=== PATIENT | male | born 1950 | race Caucasian/White ===

== ENCOUNTER 2021-08-07 09:39 | Emergency (ER) | payer MEDICARE, BC ==
--- NOTE | 2021-08-07 10:08 | EDM.PDOC ---
ED HPI GENERAL MEDICAL PROBLEM - General Chief Complaint: Genitourinary Problem Stated Complaint: trouble urinating Time Seen by Provider: 08/07/21 10:00 Source of Information: Reports: Patient, Family (spouse) - History of Present Illness INITIAL COMMENTS - FREE TEXT/NARRATIVE: 70-year-old male presents to the ED in accompaniment of his . Patient presents with chief complaint of inability to void. Of note the patient developed shingles in the L1-L2 dermatome right lower back down into the right inguinal area 5 days ago. He was started on valacyclovir 3 days ago. He is also taking Phenergan with codeine cough syrup which was started 3 days ago due to severe development of paroxysmal cough when he lies down at night. He has never had any problems with prostatism or urinary retention. He does report poor renal function. He is however on lisinopril once daily for blood pressure control. He denies any fever chills or pelvic pain other than lower abdominal discomfort this morning. He states after he left the clinic this morning he did void a small quantity of urine did not appreciate any blood in this urine. No dysuria. Onset: Gradual Onset Date: 08/06/21 (Appreciated slower urinary flow yesterday and unable to void early this morning but did void slightly after getting home from the clinic this morning) Duration: Hour(s):, Getting Worse Location: Reports: Abdomen (Diffuse lower abdominal pain rating to his lower back.), Other (Urinary retention) Quality: Reports: Other (Unable to void satisfactorily. Passing only a small quantity of urine this morning) Severity: Moderate Improves with: Reports: None Worsens with: Reports: None Context: Reports: Other (Presents to the ED with inability to empty his urinary bladder). 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: Other (see below) (Patient is taking Phenergan with codeine cough syrup both of which would inhibit bladder function) Bladder Pain Score (Numeric/FACES): 5 - Related Data Allergies Allergy/AdvReac Type Severity Reaction Status Date / Time No Known Allergies Allergy Verified 08/07/21 09:50 Home Meds: Home Meds Promethazine HCl/Codeine [Promethazine-Codeine Syrup] 1 tsp PO Q4H PRN 08/07/21 [History] atorvaSTATin [Lipitor] 20 mg PO DAILY 08/07/21 [History] lisinopriL [Lisinopril] 40 mg PO DAILY 08/07/21 [History] valACYclovir [Valtrex] 1 gm PO TID 08/07/21 [History] Past Medical History HEENT History: Reports: Impaired Vision Other HEENT History: wears eyeglasses. Cardiovascular History: Reports: High Cholesterol, Hypertension Genitourinary History: Reports: Renal Disease (Apparently has some degree of renal insufficiency) Dermatologic History: Reports: Other (See Below) Other Dermatologic History: shingles. - Infectious Disease History Infectious Disease History: Reports: Chicken Pox, Measles, Mumps, Shingles Social & Family History - Tobacco Use Tobacco Use Status *Q: Never Tobacco User Second Hand Smoke Exposure: No - Caffeine Use Caffeine Use: Reports: None - Recreational Drug Use Recreational Drug Use: No - Living Situation & Occupation Living situation: Reports: Occupation: Employed ED ROS GENERAL - Review of Systems Review Of Systems: See Below Constitutional: Reports: Decreased Appetite (Only today.). Denies: Fever, Chills, Malaise, Weakness, Night Sweats, Weight Gain, Other HEENT: Reports: Glasses Respiratory: Reports: Other (Has a severe paroxysmal minimally productive cough when he lies down at night. During the daytime he is pretty good. This is been present for the last 3 to 5 days) Cardiovascular: Reports: Blood Pressure Problem Endocrine: Reports: No Symptoms GI/Abdominal: Reports: Abdominal Pain (Lower abdominal pain suprapubically with inability to void this morning), Decreased Appetite : Reports: Urinary Retention (See history of present illness) Musculoskeletal: Reports: Joint Pain Skin: Reports: Rash (Patient has shingles rash involving his lower back in the L1-L2 dermatome that radiates down into the right inguinal fold) Neurological: Reports: No Symptoms Psychiatric: Reports: No Symptoms Hematologic/Lymphatic: Reports: No Symptoms Immunologic: Reports: No Symptoms ED EXAM, RENAL/ - Physical Exam Exam: See Below Exam Limited By: No Limitations General Appearance: Alert, WD/WN, No Apparent Distress, Other (Temperature is 36.2 degrees heart rate 99 is sinus respiratory is 18 with O2 sats of 96% room air. BP 129/75) Eye Exam: Bilateral Eye: Normal Inspection (No scleral icterus or blepharal pallor.) Respiratory/Chest: No Respiratory Distress, Lungs Clear, Normal Breath Sounds, No Accessory Muscle Use Cardiovascular: Normal Peripheral Pulses, Regular Rate, Rhythm, No Edema, No Gallop, No JVD, No Rub GI/Abdominal: No Organomegaly, Distended (The abdomen is distended and dull to percussion to just below the umbilicus compatible with a full urinary bladder.), Abnormal Bowel Sounds (Bowel sounds are very sparse.), Other (No surgical scars identified). No: Normal Bowel Sounds, Guarding, Rigid, Rebound Extremities: Normal Inspection, Normal Range of Motion, Non-Tender, No Pedal Edema Neurological: Alert, Oriented, CN II-XII Intact, Normal Cognition Psychiatric: Normal Affect, Normal Mood Skin Exam: Warm, Dry, Intact, Zoster-Like Rash (Right lower back adjacent to the L4-L5 vertebra with rash extending into the right inguinal fold in the L1 nerve root distribution) Course - Vital Signs Last Recorded V/S: Last Vital Signs Temp 36.2 C 08/07/21 09:45 Pulse 99 08/07/21 09:45 Resp 18 08/07/21 09:45 BP 129/75 08/07/21 09:45 Pulse Ox 96 08/07/21 09:45 - Orders/Labs/Meds Orders: Active Orders 24 hr Category Date Time Status Bladder Scan [RC] ASDIRECTED Care 08/07/21 10:03 Active Rodriguez Catheter Insertion [Insert Urinary Catheter] [OM. Care 08/07/21 10:45 Ordered PC] Q24H Urinary Catheter Assessment [RC] ASDIRECTED Care 08/07/21 10:35 Active Labs: Laboratory Tests 08/07/21 08/07/21 08/07/21 Range/Units 10:12 10:12 10:45 WBC 7.98 (4.23-9.07) K/mm3 RBC 5.10 (4.63-6.08) M/mm3 Hgb 14.3 (13.7-17.5) gm/dl Hct 43.7 (40.1-51.0) % MCV 85.7 (79.0-92.2) fl MCH 28.0 (25.7-32.2) pg MCHC 32.7 (32.2-35.5) g/dl RDW Std Deviation 42.3 (35.1-43.9) fL Plt Count 296 (163-337) K/mm3 MPV 9.2 L (9.4-12.3) fl Neut % (Auto) 51.1 (34.0-67.9) % Lymph % (Auto) 32.0 (21.8-53.1) % [place] % (Auto) 9.1 (5.3-12.2) % Eos % (Auto) 4.9 (0.8-7.0) Baso % (Auto) 2.3 H (0.1-1.2) % Neut # (Auto) 4.08 (1.78-5.38) K/mm3 Lymph # (Auto) 2.55 (1.32-3.57) K/mm3 [place] # (Auto) 0.73 (0.30-0.82) K/mm3 Eos # (Auto) 0.39 (0.04-0.54) K/mm3 Baso # (Auto) 0.18 H (0.01-0.08) K/mm3 Sodium 138 (136-145) mEq/L Potassium 4.3 (3.5-5.1) mEq/L Chloride 102 (98-107) mEq/L Carbon Dioxide 26 (21-32) mEq/L Anion Gap 14.3 (5-15) BUN 29 H (7-18) mg/dL Creatinine 1.9 H (0.7-1.3) mg/dL Est Cr Clr Drug Dosing 37.35 mL/min Estimated GFR (MDRD) 35 (>60) mL/min BUN/Creatinine Ratio 15.3 (14-18) Glucose 141 H (70-99) mg/dL Calcium 8.5 (8.5-10.1) mg/dL Total Bilirubin 0.5 (0.2-1.0) mg/dL AST 15 (15-37) U/L ALT 30 (16-63) U/L Alkaline Phosphatase 73 (46-116) U/L Total Protein 7.9 (6.4-8.2) g/dl Albumin 3.4 (3.4-5.0) g/dl Globulin 4.5 gm/dL Albumin/Globulin Ratio 0.8 L (1-2) Urine Color Yellow (Yellow) Urine Appearance Clear (Clear) Urine pH 5.5 (5.0-8.0) Ur Specific [place] 1.020 (1.005-1.030) Urine Protein Negative (Negative) Urine Glucose (UA) Negative (Negative) Urine Ketones Negative (Negative) Urine Occult Blood Negative (Negative) Urine Nitrite Negative (Negative) Urine Bilirubin Negative (Negative) Urine Urobilinogen 0.2 (0.2-1.0) Ur Leukocyte Esterase Negative (Negative) Urine RBC 0-5 (0-5) /hpf Urine WBC 0-5 (0-5) /hpf Ur Squamous Epith Cells 0-5 (0-5) /hpf Urine Bacteria Few (FEW) /hpf Urine Mucus Not seen (FEW) /hpf Meds: Medications Discontinued Medications Generic Name Dose Route Start Last Admin Trade Name Freq PRN Reason Stop Dose Admin Lidocaine HCl 10 ml 08/07/21 10:34 08/07/21 10:36 Lidocaine 2% Jelly 10 Ml Urojet MUCMEM 08/07/21 10:35 10 ml ONETIME ONE Administration Lidocaine HCl Confirm 08/07/21 10:34 Lidocaine 2% Jelly 10 Ml Urojet Administered 08/07/21 10:35 Dose 10 ml .ROUTE .K-MED ONE - Radiology Interpretation Free Text/Narrative:: 70-year-old male presents to the ED reporting inability to empty his urinary bladder. He states he was able to pass a small quantity of urine after he got home from the clinic this morning. Still feels incomplete emptying. Appreciated mild hesitancy see of passage of urine yesterday. Of note he was started on Phenergan with codeine cough syrup 3 days ago due to severe paroxysmal cough at nighttime when he lies down. This most likely is the culprit in inhibiting bladder function. Clinically his urinary bladder is approximately 2 cm below the umbilicus. Plan postvoid residual bladder scan to be done. Tentatively a Rodriguez catheter will then be placed and urinalysis to be evaluated. Due to history of renal insufficiency a CBC and CMP will also be or dered. - Re-Assessments/Exams Free Text/Narrative Re-Assessment/Exam: 08/07/21 10:36 patient had no luck in producing any urine. Therefore Rodriguez catheter will be placed and left in place until we clarify if there is any urinary tract infection. Procedure will be facilitated by [employer]jet lidocaine 08/07/21 11:22 White count is normal at 7.98. The auto differential reveals 51.1% neutrophils. Hemoglobin is 14.3 with hematocrit of 43.7. MCV is normal at 85.7. Platelet count 296,000. Sodium was 138 with a potassium of 4.3. Chloride is 102 with a bicarb of 26. Anion gap is 14.3 BUN is slightly elevated at 29 with a creatinine of 1.9 and a GFR of 35 i.e. stage IIIb renal insufficiency. Glucose 141 with a calcium of 8.5 total bilirubin is 0.5 AST is 15 with an ALT of 30 and alkaline phosphatase of 73. Total protein 7.9 with an albumin fraction of 3.4 urinalysis is completely normal with no evidence of infection. And wishes to have the Rodriguez catheter removed to the discomfort that is causing. He did drain approximately 450 mils of clear urine. Move the Rodriguez catheter and if he can void neck 6 to 8 hours on his own after normal drinkingHe is to return to the ED for reinsertion of Rodriguez catheter. His last dose of cough syrup IV Phenergan with codeine was around 2 or 3 this morning and therefore is likely the culprit in causing the acute urinary retention. He will no longer use this medication Departure - Departure Time of Disposition: 11:30 Disposition: Home, Self-Care 01 Condition: Fair Clinical Impression: Acute urinary retention, Adverse effects of medication - Discharge Information *PRESCRIPTION DRUG MONITORING PROGRAM REVIEWED*: Not Applicable *COPY OF PRESCRIPTION DRUG MONITORING REPORT IN PATIENT EZIO: Not Applicable Instructions: Acute Urinary Retention, Male Referrals: Bernie Campbell PA-C [Primary Care Provider] - Forms: ED Department Discharge Additional Instructions: Evaluation in the emergency room today regards to inability to pass your water or void. Bladder scan suggested over 400 mils of urine in the urinary bladder. Rodriguez catheter placement drained approximately 450 mils of clear urine. The urine test revealed no signs of infection. Lab test revealed no signs of infection. Kidney function reveals mild renal insufficiency called 3B with a GFR of 35. I believe strongly that it was the cough syrup by Phenergan with codeine that helped precipitate poor bladder contractility which in turn created inability to pass your water or what we call urinary retention. The Rodriguez catheter was removed and you are to return if you are unable to void on your own in 6 to 8 hours time with normal eating and drinking patterns. Of course discontinue the cough syrup. May replace with Robitussin which is [id number] if needed. Sepsis Event Note (ED) - Evaluation Sepsis Screening Result: No Definite Risk - Focused Exam Vital Signs: Vital Signs Temp Pulse Resp BP Pulse Ox 08/07/21 09:45 36.2 C 99 18 129/75 96 - My Orders Last 24 Hours: My Active Orders 08/07/21 10:03 Bladder Scan [RC] ASDIRECTED 08/07/21 10:35 Urinary Catheter Assessment [RC] ASDIRECTED 08/07/21 10:45 Rodriguez Catheter Insertion [Insert Urinary Catheter] [OM.PC] Q24H - Assessment/Plan Last 24 Hours: My Active Orders 08/07/21 10:03 Bladder Scan [RC] ASDIRECTED 08/07/21 10:35 Urinary Catheter Assessment [RC] ASDIRECTED 08/07/21 10:45 Rodriguez Catheter Insertion [Insert Urinary Catheter] [OM.PC] Q24H
[2021-08-07] MEDS ORDERED: Lidocaine 2% Jelly 10 ML Urojet ONE (10:34)
[2021-08-07] MEDS ORDERED: Lidocaine 2% Jelly 10 ML Urojet MUCMEM ONE (10:34)
== END 2021-08-07 11:45 | disposition home or self-care (01) ==
LOC: JD.ED 09:39
DX: R33.0 Drug induced retention of urine (principal); T40.2X5A Adverse effect of other opioids, initial encounter; T42.6X5A Adverse effect of other antiepileptic and sedative-hypnotic drugs, initial encounter; E78.00 Pure hypercholesterolemia, unspecified; I10 Essential (primary) hypertension; Z79.899 Other long term (current) drug therapy
CPT/HCPCS: 36415; 51702; 80053; 81001; 85025; 99284-25

== ENCOUNTER 2024-05-15 08:32 | Emergency (ER) | payer MEDICARE, BC ==
[2024-05-15 09:15] LABS: BASOPHILS ABSOLUTE AUTO 0.1 K/mm3 (0.0-0.2); BASOPHILS PERCENT AUTO 0.6 % (0.0-1.0); EOSINOPHILS ABSOLUTE AUTO 0.3 K/mm3 (0.0-0.4); EOSINOPHILS PERCENT AUTO 2.2 % (0.0-6.0); HEMOGLOBIN 14.1 gm/dl (14.0-18.0); IMMATURE GRAN PERCENT AUTO 0.7 % (0.0-0.4); LYMPHOCYTES ABSOLUTE AUTO 1.9 K/mm3 (1.0-4.8); LYMPHOCYTES PERCENT AUTO 14.1 % (24.0-44.0); MEAN CORPUSCULAR VOLUME 87.5 fl (83.0-99.0); MONOCYTES ABSOLUTE AUTO 1.1 K/mm3 (0.0-0.8); MONOCYTES PERCENT AUTO 8.4 % (0.0-8.0); NEUTROPHILS ABSOLUTE AUTO 9.9 K/mm3 (1.8-7.7); PLATELET COUNT,PLT 432 K/mm3 (150-400); RED BLOOD CELL COUNT 5.03 M/mm3 (4.52-5.90); WHITE BLOOD CELL COUNT,WBC 13.38 K/mm3 (3.9-11.3)
[2024-05-15 09:39] LABS: A/G RATIO 0.8 (1-2); ALBUMIN 3.4 g/dl (3.4-5.0); ANION GAP 18.1 (5-15); BILIRUBIN TOTAL 0.7 mg/dL (0.2-1.0); BUN/CREATININE RATIO 19.4 (14-18); CALCIUM 9.6 mg/dL (8.5-10.1); CREATININE 1.6 mg/dL (0.7-1.3); EST CRCL DRUG DOSING (CG) 39.78 mL/min; POTASSIUM,K 4.1 mEq/L (3.5-5.1); PROTEIN TOTAL,TP 7.9 g/dl (6.4-8.2)
[2024-05-15] MEDS ORDERED: Sodium Chloride 0.9% 1,000 ML IV STA (09:48)
[2024-05-15] MEDS: Sodium Chloride 0.9% 10 ML Syringe FLUSH PRN ×2 (10:15→10:39)
[2024-05-15] MEDS: Sodium Chloride 0.9% 100 ML IV SCH (10:15)
[2024-05-15] MEDS: Iopamidol 755 Mg/ML 100 ML Bottle IVPUSH ONE (10:16)
[2024-05-15] MEDS: Sodium Chloride 0.9% 500 ML IV STA (10:39)
== END 2024-05-15 11:15 | disposition home or self-care (01) ==
LOC: JD.ED 08:32
DX: R07.89 Other chest pain (principal); I10 Essential (primary) hypertension; E78.00 Pure hypercholesterolemia, unspecified; Z79.899 Other long term (current) drug therapy
CPT/HCPCS: 36415; 71046; 71275; 80053; 84484; 85025; 85379; 93005; 96360; 99285; J3490; J7030; Q9967; 93010; 99284